=== PATIENT | female | born 2005 | race Caucasian/White ===

== ENCOUNTER 2023-08-14 15:05 | Outpatient (CLI) | payer BC, SELFPAY ==
[2023-08-14 23:42] LABS: Chlamydia DNA Amplified* NOT DETECTED (No Detected); GC DNA Amplified* NOT DETECTED (No Detected)
== END 2023-08-14 15:06 | disposition home or self-care (01) ==
LOC: FRMREF 15:06
PROVIDERS: PCP Family Medicine; Visit Provider Registered Nurse
DX: R10.2 Pelvic and perineal pain (principal)
CPT/HCPCS: 87491; 87591

== ENCOUNTER 2023-08-15 16:09 | Outpatient (CLI) | payer BC, SELFPAY ==
--- NOTE | 2023-08-15 16:00 | CRLHL7_ITS ---
For Patients: As a result of the Century Cures Act, medical imaging exams and procedure reports are released immediately into your electronic medical record. You may view this report before your referring provider. If you have questions, please contact your health care provider. INDICATION: Pelvic pain COMPARISON: None available. FINDINGS: Transvaginal and transabdominal ultrasound examination of the female pelvis was performed. Initial examination is performed with transabdominal technique and transvaginal technique is used for better visualization of the pelvic structures. The uterus is anteverted with no evidence of mass. It measures 7.3 x 3.6 x 4.3 cm. The endometrial lining is normal in thickness at 4 mm. There is satisfactory positioning of the T-shaped intrauterine device in the superior uterine fundus. The ovaries are normal in appearance and size, the right measuring 3.2 x 2.0 x 2.2 cm and the left measuring 3.2 x 1.6 x 2.5 cm. There is normal color and pulse doppler flow in both ovaries. There is a small amount of fluid in the cul-de-sac and adjacent to the right ovary. This is nonspecific. IMPRESSION: Satisfactory positioning of an intrauterine device. Mild amount of fluid seen around the right ovary and in the cul-de-sac, nonspecific. Dictated by Chauncey Briones MD @ 08/16/2023 9:31:56 AM (Electronically Signed)
== END 2023-08-15 16:10 | disposition home or self-care (01) ==
LOC: US 16:10
PROVIDERS: PCP Family Medicine; Visit Provider Registered Nurse
DX: R10.2 Pelvic and perineal pain (principal)
CPT/HCPCS: 76830; 76856; 93976

== ENCOUNTER 2025-01-12 11:57 | Outpatient (CLI) | payer BC, SELFPAY | END 2025-01-12 11:58 | disposition home or self-care (01) | LOC: LKVREF 11:58 | PROVIDERS: PCP Family Medicine; Visit Provider Emergency Medicine | DX: R63.5 Abnormal weight gain (principal); Z13.29 Encounter for screening for other suspected endocrine disorder | CPT/HCPCS: 84443 ==